=== PATIENT | female | born 1965 | race Caucasian/White ===

== ENCOUNTER 2019-08-18 17:10 | Emergency (ER) | payer OTHER ==
[~2019-08-18] VITALS: Ht 152.4 cm; Wt 59.4 kg
[2019-08-18 17:18] VITALS: BP 104/53; Ht 152.4 cm; Wt 59.4 kg
== END 2019-08-18 18:33 | disposition home or self-care (01) ==
LOC: ED 17:10
DX: S61.211A Laceration without foreign body of left index finger without damage to nail, initial encounter (principal); W26.0XXA Contact with knife, initial encounter; Y93.89 Activity, other specified; Y92.89 Other specified places as the place of occurrence of the external cause; Y99.8 Other external cause status
CPT/HCPCS: 90715